=== PATIENT | female | born 1985 | race Caucasian/White ===

== ENCOUNTER 2017-10-19 07:42 | Inpatient (IN) | payer BC ==
[2017-10-19] VITALS (17 sets, daily range): BP systolic 111–157; BP diastolic 55–98
[~2017-10-19] VITALS: Ht 165.1 cm; Wt 92.0 kg
[2017-10-19] MEDS ORDERED: PRENATAL TABLE1 EAC3 PO (08:23)
[2017-10-19 09:09] LABS: EOSINOPHIL (%) 1.1 % (0-5); EOSINOPHIL COUNT 0.1 K/uL (0-0.3); IMMATURE GRANULOCYTE (%) 0.6 % (0.0-0.7); IMMATURE GRANULOCYTE COUNT 0.1 K/uL; INSTRUMENT ABS NEUTROPHIL CT 8.9 K/uL; LYMPHOCYTE COUNT 1.8 K/uL (1.0-2.8); MCH 28.5 PG (29.0-34.0); MCHC 32.9 G/DL (30.0-36.0); MCV 86.5 FL (83-99); MEAN PLAT.VOLUME 10.6 uM^3 (9.5-12.4); MONOCYTE (%) 8.5 % (3-12); NEUTROPHIL (%) 74.2 % (45-76); NEUTROPHIL COUNT 8.9 K/uL (1.8-6.4); PLATELET COUNT 336 K/uL (156-360); RBC DIS.WIDTH-CV 13.4 % (11.8-14.6); RBC DIS.WIDTH-SD 41.9 % (39-53); RED BLOOD COUNT 3.93 M/uL (3.80-5.20)
[2017-10-20] VITALS (25 sets, daily range): BP systolic 112–163; BP diastolic 55–92
[2017-10-20] MEDS ORDERED: IBUPROFEN800 MG PO (11:20)
[2017-10-21 07:23] VITALS: BP 119/64
== END 2017-10-21 16:42 | disposition home or self-care (01) | DRG 775 ==
LOC: LDRP-OP 07:42 → 2WEST 07:43 → LDRP-OP 11:20 → 2WEST 10-20 10:58 → LDRP-OP 11-18 10:09
PROVIDERS: Obstetrics & Gynecology Gynecology
PROC: 00HU33Z Insertion of Infusion Device into Spinal Canal, Percutaneous Approach (ICD-10-PCS; principal; 2017-10-20)
PROC: 3E0P7VZ Introduction of Hormone into Female Reproductive, Via Natural or Artificial Opening (ICD-10-PCS; principal; 2017-10-20)
PROC: 10E0XZZ Delivery of Products of Conception, External Approach (ICD-10-PCS; principal; 2017-10-20)
PROC: 3E0R3BZ Introduction of Anesthetic Agent into Spinal Canal, Percutaneous Approach (ICD-10-PCS; principal; 2017-10-20)
DX: O48.0 Post-term pregnancy (principal); O99.344 Other mental disorders complicating childbirth; O99.214 Obesity complicating childbirth; O69.1XX0 Labor and delivery complicated by cord around neck, with compression, not applicable or unspecified; E66.9 Obesity, unspecified; Z68.30 Body mass index [BMI] 30.0-30.9, adult; O24.425 Gestational diabetes mellitus in childbirth, controlled by oral hypoglycemic drugs; F41.9 Anxiety disorder, unspecified; Z3A.40 40 weeks gestation of pregnancy; Z37.0 Single live birth
CPT/HCPCS: 85025; C1755; G0378; J0595; J3010; J7120; Q0169